=== PATIENT | female | born 2000 | race Caucasian/White ===

== ENCOUNTER → 2022-09-12 | Outpatient (CLI) | payer OTHER ==
--- NOTE | 2022-09-19 18:57 | MR ---
EXAMINATION TYPE: MR foot RT wo con DATE OF EXAM: 09/12/2022 COMPARISON: No radiographic correlation available HISTORY: 21-year-old female Right foot pain, possible stress fracture to second metatarsal. S92.324K NONDISP FX OF 2ND METATARSAL BONE, R FT, TECHNIQUE: Multiplanar, multisequence images of the right foot were obtained without IV contrast. FINDINGS: Small tibiotalar joint effusion. Tibiotalar and subtalar joints are intact.. Lisfranc ligament is visualized intact. Preserved fatty signal in the sinus Tarsi. The tarsal tunnel is intact. Medial and lateral ligaments of the ankle appear grossly intact as is the syndesmosis. No acute or healing fracture is identified. Small effusions within the first, second, and third web spaces of the intermetatarsal bursa. No significant soft tissue abnormality seen. Smooth delineation to the Achilles tendon. Origin of the plantar fascia is intact. IMPRESSION: No acute or healing fracture is identified. No stress fracture or other significant abnormality is id entified.
== END | disposition home or self-care (01) ==
LOC: RADMRIMAIN 18:30
PROVIDERS: ATTEND Podiatrist
DX: S92.324K Nondisplaced fracture of second metatarsal bone, right foot, subsequent encounter for fracture with nonunion (principal); X58.XXXD Exposure to other specified factors, subsequent encounter